=== PATIENT | female | born 2000 | race African-American/Black ===

== ENCOUNTER 2023-08-13 09:13 | Emergency (ER) | payer MEDICAID, OTHER ==
[~2023-08-13] VITALS: Ht 147.3 cm; Wt 52.4 kg
[2023-08-13 11:16] VITALS: BP 150/86; PULSE 108; RESP 15; TEMP 98.3; O2SAT 100
[2023-08-13] MEDS ORDERED: ACETAMINOPHEN 500 MG TAB PO ONE (11:30)
[2023-08-13] MEDS ORDERED: NABU-72 PO (12:00)
== END 2023-08-13 12:54 | disposition home or self-care (01) ==
LOC: ER 09:13
DX: S09.8XXA Other specified injuries of head, initial encounter (principal); M54.2 Cervicalgia; Z79.899 Other long term (current) drug therapy; V43.52XA Car driver injured in collision with other type car in traffic accident, initial encounter; Y93.I9 Activity, other involving external motion; Y92.89 Other specified places as the place of occurrence of the external cause; Y99.8 Other external cause status
CPT/HCPCS: 70450; 72040